=== PATIENT | female | born 1995 | race Caucasian/White ===

== ENCOUNTER 2017-05-21 07:23 | Emergency (ER) | payer BC, OTHER ==
[~2017-05-21] VITALS: Ht 156.2 cm; Wt 58.6 kg
[2017-05-21 07:25] VITALS: TEMP 36.7; Ht 156.2 cm; Wt 58.6 kg
[2017-05-21] MEDS ORDERED: XYLOCAINE 1%/SOD BICARB 20 ML VIAL INFIL STA (07:30)
--- NOTE | 2017-05-21 07:33 | EMERGENCY ROOM VISIT NOTE ---
History Report prepared by Vesta: Augustus Del Toro Under the Supervision of: Dr. Davonte Millan M.D. First contact with patient: 07:26 Chief Complaint: LACERATION/CUT (SUT/DERMABOND) Stated Complaint: HEAD LAC History of Present Illness The patient is a 20 year old female who presents to the Emergency Room with complaints of a sudden left forehead injury that occurred prior to arrival this morning. 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 The patient states that she did not lose consciousness. She denies any neck pain or back pain. The patient says that her parents do not know she is here, but does not want me to call them . Source of History: patient Onset: [employer] this morning Position: other (left forehead) Symptom Intensity: with some pain Quality: other (smacked heads with someone) Timing: other (sudden) Associated Symptoms: No LOC, No neck pain, No back pain Review of Systems See HPI for pertinent positives & negatives. A total of 10 systems reviewed and were otherwise negative. Past Medical & Surgical Medical Problems: (1) No chronic diseases present Family History No pertinent family history Social History Marital Status: single Housing Status: lives with roommate Occupation Status: [employer] student Current/Historical Medications Unable to Obtain Active Prescriptions or Reported Meds Allergies Coded Allergies: No Known Allergies (Unverified , 05/21/17) Physical Exam Vital Signs Date Time Temp Pulse Resp B/P (MAP) Pulse Ox O2 Delivery O2 Flow Rate FiO2 05/21/17 08:15 73 16 109/68 97 05/21/17 07:25 36.7 70 16 105/68 100 Room Air Physical Exam GENERAL: Patient is a healthy-appearing well-nourished 21 year old female. HEAD: 4 cm laceration to left forehead with minor bleeding. EYES: Ocular movements intact pupils equal and react to light OROPHARYNX mucous membranes are moist no exudates present no erythema or edema present NECK: Supple no nuchal rigidity CHEST: Good equal expansion LUNGS: Clear and equal to auscultation CARDIAC: Normal S1 and S2 ABDOMEN: Soft nontender no guarding BACK: No CVA tenderness EXTREMITIES: No pain upon palpation normal muscle strength in all groups no clubbing cyanosis or edema NEURO: Patient is following commands and answering questions appropriately. Alert and oriented x3 Cranial Nerves 2-12 grossly intact Medical Decision & Procedures Procedure Location: Left forehead. Total length: 4 cm. Complexity: Simple. Verbal consent was obtained after the risks and benefits were explained, including but not limited to bleeding, scarring, infection, pain, and bone/joint /nerve damage. At this time, the risks of the procedure are less than the risks of NOT performing the procedure. A time out was taken and the correct patient and site identified. The skin was prepped with betadine. The target area was anesthetized with 10 ml of 1% lidocaine without epinephrine. Copious irrigation was performed using normal saline. The skin was re-prepped with betadine and a sterile field set. The wound was explored for foreign bodies and none found. Examination revealed no injury to deep structures such as tendons, bone, or significant blood vessels. Debridement was not performed. The wound edges were approximated using 6, 1-0 simple interrupted nylon sutures. Hemostasis and excellent approximation was achieved. Antibacterial ointment and a sterile dressing applied. Detailed wound care instructions and signs and symptoms of infection reviewed with the patient. No complications and the patient tolerated the procedure well. ED Course 07: Past medical records reviewed. The patient was evaluated in room A10. A complete history and physical examination was performed. I performed a laceration repair. I then discussed results and treatment plan with the patient. She verbalizes agreement and understanding. The patient is ready for discharge. 07: Ordered Buffered Lidocaine 1% Inj 20 ml INFIL. Medical Decision Differential diagnosis: Etiologies such as fracture, dislocation, intra-abdominal, pneumothorax, intrathoracic , intracranial, neurologic, as well as other traumatic pathologies were entertained. This is a 21-year-old female who presents emergency department complaining of laceration. I offered to call this patient's parents however she refused. The laceration was closed as above. I cautioned the patient on these a bacitracin on the sutures over the next 7-10 days. I also advised her to use cocoa butter vitamin E over the next 6 months. Patient was in agreement with the treatment plan. Medication Reconcilliation Current Medication List: was personally reviewed by me Blood Pressure Screening Patient's blood pressure: Normal blood pressure Impression Primary Impression: Laceration Scribe Attestation The scribe's documentation has been prepared under my direction and personally reviewed by me in its entirety. I confirm that the note above accurately reflects all work, treatment, procedures, and medical decision making performed by me. Departure Information Dispostion Home / Self-Care Prescriptions Unable to Obtain Active Prescriptions or Reported Meds Referrals No Doctor, Assigned Patient Instructions ED Laceration Facial Sutr Tape, ED Scar Tips to Minimize, My [facility] Additional Instructions Apply bacitracin twice a day to sutures to keep moist Sutures out in 7-10 days After removing sutures apply Buckner butter and Vitamin E for six months to minimize scar Apply sunscreen for six months anytime you are in sun You have been examined and treated today on an emergency basis only. This is not a substitute for, or an effort to provide, complete comprehensive medical care. It is impossible to recognize and treat all injuries or illnesses in a single emergency department visit. It is therefore important that you follow up closely with [facility]. Call as soon as possible for an appointment. Thank you for your time and consideration. I look forward to speaking with you again soon. Please don't hesitate to call us if you have any questions.
[2017-05-21 08:15] VITALS: BP 109/68; PULSE 73; O2SAT 97
== END 2017-05-21 08:15 | disposition home or self-care (01) ==
LOC: C.EDA 07:27
DX: S01.81XA Laceration without foreign body of other part of head, initial encounter (principal); W51.XXXA Accidental striking against or bumped into by another person, initial encounter